=== PATIENT | female | born 1990 | race Caucasian/White ===

== ENCOUNTER 2022-02-25 10:09 | Outpatient (CLI) | payer BC, SELFPAY | END 2022-02-25 10:10 | disposition home or self-care (01) | LOC: LONREF 02-28 14:35 | PROVIDERS: PCP Orthopaedic Surgery; Visit Provider Family Medicine | DX: N39.0 Urinary tract infection, site not specified (principal); R35.0 Frequency of micturition | CPT/HCPCS: 87086; 87186 ==

== ENCOUNTER 2024-06-06 09:45 | Outpatient (RCR) | payer BC, SELFPAY | END 2024-10-04 23:59 | disposition home or self-care (01) | PROVIDERS: PCP Registered Nurse; Visit Provider Registered Nurse | DX: S83.411A Sprain of medial collateral ligament of right knee, initial encounter (principal); Z51.89 Encounter for other specified aftercare | CPT/HCPCS: 97110; 97161 ==